=== PATIENT | female | born 2005 | race Caucasian/White ===

== ENCOUNTER 2023-12-26 15:27 | Emergency (ER) | payer BC, SELFPAY ==
[2023-12-26 15:47] VITALS: BP 109/76
--- NOTE | 2023-12-26 15:51 | ED.GENMED ---
History of Present Illness
General
Chief Complaint: Crisis Evaluation
Source: patient and ambulance crew
Exam Limitations: none
Time Seen by Provider: 12/26/23 15:31
Nursing documentation reviewed up to this point in time: agreed with
History of Present Illness
History of Present Illness:
18-year-old college student presents for evaluation she for scratching on her arms associate with anxiety apparently had a history of this previously per friend, friend got concerned and called Public Safety at her [employer], who then called 911
who then called the medical command in [place] who recommended that she come to the ER here for evaluation
Phy Exam
Physical Exam
Physical Exam:
Physical Exam
General: no apparent distress, not acutely ill
Neck: Without jaundice
Heart: Regular
Lungs: no acute respiratory distress.
Neuro: alert and oriented. no focal neurological deficits
Skin: no rash
Psychiatric: Flat affect cooperative
Extremities: Forearms covered patient will not allow me to visualize the
Course
Orders/Labs/Results
Orders:
Orders
12/26/23 15:37
Crisis Consult Routine
Reason for Consult: anxious
Vital Signs
Initial and Last Documented VS:
Initial Vital Signs
Temp Pulse Resp BP Pulse Ox
98.4 F 88 18 109/76 100
12/26/23 15:47 12/26/23 15:47 12/26/23 15:47 12/26/23 15:47 12/26/23 15:47
Last Documented Vital Signs
Temp Pulse Resp BP Pulse Ox
98.4 F 78 18 111/73 100
12/26/23 15:47 12/26/23 17:00 12/26/23 17:00 12/26/23 17:00 12/26/23 17:00
MDM/Problems Addressed
Differential Diagnosis Includes:
Anxiety depression self-harm denies suicidal ideation unable to assess for any cellulitis or skin defect at this time
MDM/Problems Addressed:
Possible mental
*Critical Care Note
Total Time (30-74mins, 75-104mins- exclusive of procedures): Not Applicable
Update Note
Update Note:
Update, patient did consent to examine her arms, with nurse Jerri, a few superficial abrasions no signs of infection
Reviewed with Rose from crisis, outpatient follow-up arranged
ED Attending Note
-
Portions of this chart may have been created with voice recognition software.� Occasional wrong word or��sound alike� substitutions may have occurred due to the inherent limitations of voice recognition software.
Discharge Plan
Departure
Patient Disposition: Home (Routine Discharge)
Date of Disposition: 12/26/23
Time of Disposition: 17:16
Patient with high blood pressure during this ER visit?: No
Condition: Good
Covid-19: Not Applicable
Discharge Problem:
Anxiety
Instructions: Anxiety, Adult (DC)
Referrals:
Alondra Tristan PA-C [Family Provider] -
Interventions
Interventions:
*Risk Screen - Suicide Last Done: 12/26/23 15:37
*General Assessment Last Done: 12/26/23 15:37
*Neglect/Abuse Screening Last Done: 12/26/23 15:37
ED- Fall Risk Assessment Last Done: 12/26/23 15:51
*ED COVID-19 Vaccine History Last Done: 12/26/23 15:37
ED-Psychological Assessment Last Done: 12/26/23 15:51
Discharge Date and Time
Print Language: POLISH
[2023-12-26 17:00] VITALS: BP 111/73
== END 2023-12-26 17:34 | disposition home or self-care (01) ==
LOC: EMR 15:27
PROVIDERS: EMERGENCY PHYSICIAN Emergency Medicine; FAMILY PHYSICIAN Physician Assistant Medical
DX: F41.9 Anxiety disorder, unspecified (principal)
CPT/HCPCS: 99283